=== PATIENT | female | born 1995 | race Caucasian/White ===

== ENCOUNTER 2019-03-09 21:18 | Emergency (ER) | payer OTHER ==
[~2019-03-09] VITALS: Ht 162.6 cm; Wt 63.5 kg
[2019-03-09 21:40] VITALS: BP 104/71
--- NOTE | 2019-03-09 21:40 | NUR ---
ED Nurse Note: Patient walked in to ER c/o soto. Stated that has allergic reaction for antibiotic. AAO x4, VSS at this time.
[2019-03-09] MEDS ORDERED: DIPHENHYDRAMINE25 M1 ORAL (21:59)
[2019-03-09] MEDS ORDERED: PREDNISONE20 MG ORAL (21:59)
[2019-03-09] MEDS ORDERED: CLINDAMYCIN HC300 MG ORAL (22:00)
[2019-03-09 22:14] VITALS: BP 104/71
--- NOTE | 2019-03-09 22:14 | NUR ---
ED Nurse Note: Pt cleared by health care Provider for discharge. DC instructions/prescription was given and explained to pt and verbalized understanding of teachings. All medical deviecs such as ID band removed. Pt is AAO x4, ambulatory and left with all personal belongings.
--- NOTE | 2019-03-10 04:10 | Emergency Room Report ---
History of Present Illness General Chief Complaint: Skin Rash/Abscess Source: Patient Present Illness HPI 23-year-old female presents ED for evaluation. Patient complaining of rash to her arms and legs x3 days. States that she got a "insect bite on her left thigh on Thursday. Went to an urgent care on Thursday and was prescribed antibiotics. States that the insect bite does appear to be improving however she developed a rash to her arms and legs since. Denies any known food or drug allergies. States it is itchy. Denies any pain. Denies any fevers or chills. Denies any tongue swelling or throat swelling. No other aggravating relieving factors. Denies any other associated symptoms Allergies: Coded Allergies: No Known Allergies (Unverified , 03/09/19) Patient History Past Medical History: none Past Surgical History: none Pertinent Family History: none Social History: Denies: smoking, alcohol use, drug use Last Menstrual Period: 02/21/19 Now: No Immunizations: UTD Reviewed Nursing Documentation: PMH: Agreed; PSxH: Agreed Nursing Documentation-PMH Past Medical History: No Stated History Review of Systems All Other Systems: negative except mentioned in HPI Physical Exam Vital Signs Date Time Temp Pulse Resp B/P (MAP) Pulse Ox O2 Delivery O2 Flow Rate FiO2 03/09/19 21:23 98.2 79 18 104/71 (82) 95 Room Air Sp02 EP Interpretation: reviewed, normal General Appearance: no apparent distress, alert, GCS 15, non-toxic Head: normocephalic Eyes: bilateral eye normal inspection, bilateral eye PERRL ENT: normal ENT inspection Neck: normal inspection Respiratory: normal inspection Cardiovascular #1: normal inspection Gastrointestinal: normal inspection Rectal: deferred Genitourinary: no CVA tenderness Musculoskeletal: normal inspection Neurologic: alert, oriented x3, responsive, motor strength/tone normal, sensory intact, speech normal Psychiatric: normal inspection Skin: rash - urticaria to arms and legs, other - healing area of cellulitis to L proximal thigh Lymphatic: normal inspection Medical Decision Making Diagnostic Impression: Primary Impression: Allergic reaction Qualified Codes: T78.40XA - Allergy, unspecified, initial encounter ER Course Hospital Course 23 yo F presents with rash after taking antibiotics for insect bite Differential diagnoses include: allergic reaction, angioedema, anaphylaxis Clinical course Patient placed on stretcher. electronic device monitor. After initial history, exam reveals female in no acute distress. On exam there appears to be a healing area to the left proximal thigh. Patient states this appears overall improved without pain. No fluctuance or discharge. There appears to be an urticarial rash to the arms and legs bilaterally. No stridor. No tongue swelling or throat swelling. Lungs clear. She was prescribed Keflex. Possible allergic reaction to Keflex. I discussed this with the patient. Patient will be given prednisone and Benadryl. We will also change antibiotic to clindamycin. she will stop the keflex. Safe for discharge for close outpatient follow-up. States she does not have a PMD. Will provide referrals i. I feel this is a highly complex case requiring extensive working including EKG/Rhythm strip, Xray/CT/US, Blood/urine lab work, repeat exams while in ED, and administration of strong opiates/narcotics for pain control, admission to hospital or close patient follow up. Diagnosis - allergic reaction Stable and discharged to home with prescriptions for clindamycin, prednisone, Benadryl. Followup with PMD. Return to ED if symptoms recur or worsen Last Vital Signs Date Time Temp Pulse Resp B/P (MAP) Pulse Ox O2 Delivery O2 Flow Rate FiO2 03/09/19 22:14 98.2 18 104/71 95 Room Air 03/09/19 21:23 79 Status: improved Disposition: HOME, SELF-CARE Condition: Stable Scripts Clindamycin Hcl (CLINDAMYCIN HCL) 300 Mg Capsule 300 MG ORAL THREE TIMES A DAY, #21 CAP Prov: Navid Botello MD 03/09/19 Prednisone* (PREDNISONE*) 20 Mg Tablet 40 MG ORAL DAILY, #10 TAB Prov: Navid Botello MD 03/09/19 Diphenhydramine Hcl* (DIPHENHYDRAMINE HCL*) 25 Mg Capsule 25 MG ORAL Q6H PRN for Itching for 5 Days, #30 CAP 0 Refills Prov: Navid Botello MD 03/09/19 Referrals: NOT CHOSEN IPA/,REFERRING (PCP) Pamela Sanchez [facility]. [facility] Patient Instructions: Drug Allergy, [id number] Navid Botello MD Mar 10, 2019 04:10
== END 2019-03-09 22:14 | disposition home or self-care (01) ==
LOC: EMR 21:56
DX: T78.40XA Allergy, unspecified, initial encounter (principal); X58.XXXA Exposure to other specified factors, initial encounter
CPT/HCPCS: 99282